=== PATIENT | male | born 1950 | race Caucasian/White ===

== ENCOUNTER 2020-04-17 13:14 | Observation (INO) | payer MEDICARE, BC, OTHER ==
[~2020-04-17] VITALS: Ht 177.8 cm; Wt 74.8 kg
--- NOTE | 2020-04-17 15:17 | Diagnostic Imaging Report ---
EXAMINATION: CHEST SINGLE (PORTABLE) INDICATION: ^CP ^[id number] ^1426 COMPARISON: None FINDINGS: Pacemaker device overlying the left mid chest with leads overlying the right atrium, right ventricle and third lead probably in the coronary sinus. TUBES and LINES: None. LUNGS: Lungs are well inflated. Lungs are clear. There is no evidence of pneumonia or pulmonary edema. PLEURA: No pleural effusion or pneumothorax. HEART AND MEDIASTINUM: The cardiomediastinal silhouette is unremarkable.. BONES AND SOFT TISSUES: No acute osseous lesion. Soft tissues are unremarkable. UPPER ABDOMEN: No free air under the diaphragm. IMPRESSION: No acute thoracic abnormality. Signed by: Dr. Radha Srivastava M.D. on 04/17/2020 3:14 PM
[2020-04-17 15:56] LABS: BASOPHILS % 0.6 % (0.0-1.0); EOSINOPHILS # (AUTO) 0.1 (0.0-0.4); HEMATOCRIT 41.9 % (38.2-49.6); HEMOGLOBIN 13.4 g/dL (14.0-18.0); LYMPHOCYTES % 19.1 % (18.0-39.1); MEAN CORPUSCULAR HEMOGLOBIN 30.4 pg (28-32); MONOCYTES # (AUTO) 0.5 (0.2-0.8); MONOCYTES % 9.7 % (4.4-11.3); NEUTROPHILS # (AUTO) 3.6 (2.1-6.9); NEUTROPHILS % 69.2 % (38.7-80.0); PLATELET COUNT 236 x10e3/uL (140-360); RED BLOOD COUNT 4.41 x10e6/uL (4.3-5.7); RED CELL DISTRIBUTION WIDTH 13.5 % (11.7-14.4)
[2020-04-17 16:09] LABS: INR 2.63; PROTHROMBIN TIME 30.1 seconds (11.9-14.5)
[2020-04-17 16:10] LABS: PARTIAL THROMBOPLASTIN TIME 34.7 seconds (23.8-35.5)
[2020-04-17 16:16] LABS: ALBUMIN 4.5 g/dL (3.5-5.0); ALBUMIN/GLOBULIN RATIO 1.7 (0.8-2.0); ANION GAP 13.1 mmol/L (8-16); CALCIUM 9.3 mg/dL (8.4-10.2); CREATININE, SERUM 1.5 mg/dL (0.72-1.25); POTASSIUM 5.1 mmol/L (3.5-5.1)
[2020-04-17 16:23] LABS: CREATINE KINASE MB 1.3 ng/mL (0-5.0)
--- NOTE | 2020-04-17 17:56 | Emergency Department Note ---
History of Present Illnes History of Present Illness Chief Complaint: Chest Pain History of Present Illness This is a 69 year old male PATIENT IN FROM HOME WITH COMPLAINTS OF CHEST PAIN OFF AND ON X 2 DAYS; PATIENT DENIES COUGH, SHORTNESS OF BREATH, FEVER. RATES PAIN 2/10, APPEARS IN NO DISTRESS, RESP EVEN AND NONLABORED, AMBULATORY WITHOUT ASSISTANCE. Historian: Patient Arrival Mode: Car Plant Puller Required: No Onset (how long ago): day(s) (2) Location: CHEST Quality: PRESSURE Radiation: Reports non-radiation Onset quality: gradual Timing of current episode: intermittent Progression: waxing and waning Chronicity: new Context: Denies recent illness Relieving factors: none Exacerbating factors: none Associated symptoms: Reports denies other symptoms Treatments prior to arrival: none Past Medical/Family History Physician Review I have reviewed the patient's past medical and family history. Any updates have been documented here. Past Medical History Recent Fever: No Clinical Suspicion of Infectio: No New/Unexplained Change in Ment: No Past Medical History: Hypertension Past Surgical History: CABG, Pacer/AICD, Hernia Repair Other Surgery: AORTIC AND MITRAL VALVE REPAIR AND REPLACEMENT Social History Smoking Cessation: Never Smoker Counseling Performed: No Alcohol Use: None Any Illegal Drug Use: No Physically hurt or threatened: No Other Any Pre-Existing Lines (PICC,: No Review of Systems Review of Systems Constitutional: Reports no symptoms EENTM: Reports no symptoms Cardiovascular: Reports as per HPI, Reports chest pain Respiratory: Reports no symptoms Gastrointestinal: Reports no symptoms Genitourinary: Reports no symptoms Musculoskeletal: Reports no symptoms Integumentary: Reports no symptoms Neurological: Reports no symptoms Psychological: Reports no symptoms Endocrine: Reports no symptoms Hematological/Lymphatic: Reports no symptoms Physical Exam Related Data Allergies: Coded Allergies: No Known Allergies (Unverified , 04/17/20) Triage Vital Signs Vital Signs Date Time Temp Pulse Resp B/P (MAP) Pulse Ox O2 Delivery O2 Flow Rate FiO2 04/17/20 13:20 98.8 87 20 144/95 98 Room Air Vital signs reviewed: Yes Physical Exam CONSTITUTIONAL Constitutional: Present well-developed, Present well-nourished HENT HENT: Present normocephalic, Present atraumatic, Present oropharynx clear/moist, Present nose normal HENT L/R: Present left ext ear normal, Present right ext ear normal EYES Eyes: Reports PERRL, Reports conjunctivae normal NECK Neck: Present ROM normal PULMONARY Pulmonary: Present effort normal, Present breath sounds normal CARDIOVASCULAR Cardiovascular: Present regular rhythm, Present heart sounds normal, Present capillary refill normal, Present normal rate, Present 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 (MECHANICAL CLICK) GASTROINTESTINAL Abdominal: Present soft, Present nontender, Present bowel sounds normal GENITOURINARY Genitourinary: Present exam deferred SKIN Skin: Present warm, Present dry MUSCULOSKELETAL Musculoskeletal: Present ROM normal NEUROLOGICAL Neurological: Present alert, Present oriented x 3, Present no gross motor or sensory deficits PSYCHOLOGICAL Psychological: Present mood/affect normal, Present judgement normal Results Laboratory Result Diagram: 04/17/20 1520 04/17/20 1520 Laboratory Laboratory Tests Test 04/17/20 15:20 White Blood Count 5.24 x10e3/uL (4.8-10.8) Red Blood Count 4.41 x10e6/uL (4.3-5.7) Hemoglobin 13.4 g/dL (14.0-18.0) Hematocrit 41.9 % (38.2-49.6) Mean Corpuscular Volume 95.0 fL (81-99) Mean Corpuscular Hemoglobin 30.4 pg (28-32) Mean Corpuscular Hemoglobin Concent 32.0 g/dL (31-35) Red Cell Distribution Width 13.5 % (11.7-14.4) Platelet Count 236 x10e3/uL (140-360) Neutrophils (%) (Auto) 69.2 % (38.7-80.0) Lymphocytes (%) (Auto) 19.1 % (18.0-39.1) Monocytes (%) (Auto) 9.7 % (4.4-11.3) Eosinophils (%) (Auto) 1.0 % (0.0-6.0) Basophils (%) (Auto) 0.6 % (0.0-1.0) Neutrophils # (Auto) 3.6 (2.1-6.9) Lymphocytes # (Auto) 1.0 (1.0-3.2) Monocytes # (Auto) 0.5 (0.2-0.8) Eosinophils # (Auto) 0.1 (0.0-0.4) Basophils # (Auto) 0.0 (0.0-0.1) Absolute Immature Granulocyte (auto 0.02 x10e3/uL (0-0.1) Prothrombin Time 30.1 seconds (11.9-14.5) Prothromb Time International Ratio 2.63 Activated Partial Thromboplast Time 34.7 seconds (23.8-35.5) Sodium Level 143 mmol/L (136-145) Potassium Level 5.1 mmol/L (3.5-5.1) Chloride Level 106 mmol/L (98-107) Carbon Dioxide Level 29 mmol/L (22-29) Anion Gap 13.1 mmol/L (8-16) Blood Urea Nitrogen 26 mg/dL (7-26) Creatinine 1.50 mg/dL (0.72-1.25) Estimat Glomerular Filtration Rate 47 ML/MIN (60-) BUN/Creatinine Ratio 17 (6-25) Glucose Level 105 mg/dL (74-118) Calcium Level 9.3 mg/dL (8.4-10.2) Total Bilirubin 0.7 mg/dL (0.2-1.2) Aspartate Amino Transf (AST/SGOT) 31 IU/L (5-34) Alanine Aminotransferase (ALT/SGPT) 34 IU/L (0-55) Alkaline Phosphatase 61 IU/L (40-150) Creatine Kinase 100 IU/L (30-200) Creatine Kinase MB 1.30 ng/mL (0-5.0) Troponin I 0.003 ng/mL (0-0.300) B-Type Natriuretic Peptide 142.9 pg/mL (0-100) Total Protein 7.1 g/dL (6.5-8.1) Albumin 4.5 g/dL (3.5-5.0) Globulin 2.6 g/dL (2.3-3.5) Albumin/Globulin Ratio 1.7 (0.8-2.0) Lab results reviewed: Yes Imaging Imaging results reviewed: Yes Impressions Procedure: [id number] DX/CHEST SINGLE (PORTABLE) Exam Date: 04/17/20 Exam Time: 1424 REPORT STATUS: Signed EXAMINATION: CHEST SINGLE (PORTABLE) INDICATION: ^CP ^[id number] ^1425 COMPARISON: None FINDINGS: Pacemaker device overlying the left mid chest with leads overlying the right atrium, right ventricle and third lead probably in the coronary sinus. TUBES and LINES: None. LUNGS: Lungs are well inflated. Lungs are clear. There is no evidence of pneumonia or pulmonary edema. PLEURA: No pleural effusion or pneumothorax. HEART AND MEDIASTINUM: The cardiomediastinal silhouette is unremarkable.. BONES AND SOFT TISSUES: No acute osseous lesion. Soft tissues are unremarkable. UPPER ABDOMEN: No free air under the diaphragm. IMPRESSION: No acute thoracic abnormality. Signed by: Dr. Radha Srivastava M.D. on 04/17/2020 3:14 PM Procedures 12 Lead ECG Interpretation ECG Interpretation : ECG: ECG 1 Plant Puller: Interpreted by ED physician Date: Apr 17, 2020 Time: 13:25 Rhythm: paced (CONTINUOUS ELECTRONIC PACEMAKER) Rate: tachycardia (74) QRS axis: right Clinical Impression: abnormal ECG Assessment & Plan Medical Decision Making MDM CBC, CHEM, ECG, CARDIACS, BNP, CXR, COVID SWAB - R/O STEMI/NSTEMI/ACS, ELECTROLYTE ABNL, PNEUMONIA, COVID Reassessment Reassessment PT REQUESTS TRANSFER TO [facility] WHERE HIS OIL WELL LOGGING ENGINEER IS, DR POLANCO. REPORT TO DR HARP - AWAIT CALL BACK FOR POSSIBLE TRANSFER Assessment & Plan Final Impression: (1) Chest pain Depart Disposition: TRANS TO OTHER [facility] Last Vital Signs Date Time Temp Pulse Resp B/P (MAP) Pulse Ox O2 Delivery O2 Flow Rate FiO2 04/17/20 13:20 98.8 87 20 144/95 98 Room Air AMI MARI MD Apr 17, 2020 17:56
[2020-04-17] MEDS ORDERED: ONDANSETRON HCL INJ 2MG/ML 2ML 2 MG/ML VIAL IV PRN (20:15)
[2020-04-17] MEDS ORDERED: MELATONIN 5 MG TABLET PO PRN (22:00)
[2020-04-17] MEDS ORDERED: ACETAMINOPHEN 325 MG TAB PO PRN (22:00)
[2020-04-17] MEDS ORDERED: HYDROCODONE/APAP 5MG-325MG TAB PO PRN (22:00)
[2020-04-17] MEDS ORDERED: HYDRALAZINE HCL 20 MG/ML VIAL IV PRN (22:00)
[2020-04-17] MEDS ORDERED: DOCUSATE SODIUM 100 MG CAP PO PRN (22:00)
[2020-04-17] MEDS ORDERED: ASPIRIN 81 MG CHEW TAB PO ONE (22:15)
--- NOTE | 2020-04-18 00:54 | NUR ---
Received report from ER nurse.
--- NOTE | 2020-04-18 02:09 | NUR ---
Patient concerned about his coumadin. Called and s/w Dr Love and recieved order for one time dose of meds.
[2020-04-18] MEDS ORDERED: WARFARIN SOD 5 MG TAB PO ONE (02:15)
[2020-04-18 02:27] LABS: CREATINE KINASE MB 1.5 ng/mL (0-5.0)
[2020-04-18 02:43] VITALS: BP 169/96
[2020-04-18] MEDS ORDERED: RAMIPRIL5 MG PO (03:00)
[2020-04-18] MEDS ORDERED: COUMADIN5 MG PO (03:00)
[2020-04-18] MEDS ORDERED: AMIODARONE HCL200 MG PO (03:02)
[2020-04-18] MEDS ORDERED: vitamin D3 PO (03:22)
[2020-04-18] MEDS ORDERED: calcium PO (03:26)
[2020-04-18] MEDS ORDERED: MULTIVITAMINS1 EAC7 PO (03:28)
[2020-04-18 04:00] VITALS: BP 148/86
--- NOTE | 2020-04-18 05:39 | NUR ---
Patient resting quitly at this rime,. Continur to monitor.
--- NOTE | 2020-04-18 07:00 | NUR ---
received bedside report. pt is alert sitting up in bed, no s/s of distress. call light within reach and instructed pt to call RN for help
[2020-04-18 07:23] LABS: BASOPHILS % 0.5 % (0.0-1.0); EOSINOPHILS % 0.5 % (0.0-6.0); HEMATOCRIT 41.9 % (38.2-49.6); HEMOGLOBIN 13.3 g/dL (14.0-18.0); LYMPHOCYTES % 13.9 % (18.0-39.1); MEAN CORPUSCULAR HEMOGLOBIN 30.4 pg (28-32); MEAN CORPUSCULAR HGB CONC 31.7 g/dL (31-35); MEAN CORPUSCULAR VOLUME 95.7 fL (81-99); MONOCYTES # (AUTO) 0.7 (0.2-0.8); MONOCYTES % 9.5 % (4.4-11.3); NEUTROPHILS # (AUTO) 5.5 (2.1-6.9); NEUTROPHILS % 75.2 % (38.7-80.0); PLATELET COUNT 211 x10e3/uL (140-360); RED BLOOD COUNT 4.38 x10e6/uL (4.3-5.7); RED CELL DISTRIBUTION WIDTH 13.2 % (11.7-14.4)
[2020-04-18 07:44] LABS: ALBUMIN 4.2 g/dL (3.5-5.0); ALBUMIN/GLOBULIN RATIO 1.6 (0.8-2.0); ANION GAP 12.1 mmol/L (8-16); CALCIUM 9.2 mg/dL (8.4-10.2); CREATININE, SERUM 1.2 mg/dL (0.72-1.25); POTASSIUM 4.1 mmol/L (3.5-5.1)
[2020-04-18 07:53] VITALS: BP 141/89
[2020-04-18 07:56] VITALS: BP 141/89
[2020-04-18 08:23] LABS: CREATINE KINASE MB 2.4 ng/mL (0-5.0)
[2020-04-18] MEDS ORDERED: ASPIRIN 325 MG TAB PO SCH (09:00)
--- NOTE | 2020-04-18 18:08 | Consultation ---
DATE OF CONSULTATION: Cardiac consultation. REASON FOR CONSULTATION: Chest pain, dizzy spells, and patient with complex cardiac history. HISTORY OF PRESENT ILLNESS: This is a 69-year-old gentleman who is known with longstanding history of heart disease, in fact his heart disease is valvular in nature. He had aortic valve repair surgery in 1966, which helped him till 1993 where he had aortic valve replacement by Dr. Klein. Subsequently, he did well until approximately 2009 where he had problem with syncope and near syncope. The patient had [employer] pacemaker placement in 2009. In 2011, he need to have mitral valve replacement by Dr. Mcmanus severe mitral regurgitation. In 2012, he need to have some form of recent ablation, questionable atrial fibrillation. In 2018, he had his generator changed by Dr. Kirkland. The patient is seen and evaluated in October of this year by Dr. Castañeda had cardiac stress test, which was reported negative as per patient. The patient on , he working in his yard. He felt dizzy. He is almost going to pass out. He came inside to drink a lot of fluid. He checked his blood pressure. His systolic was 150, i.e. no low blood pressure. Over the ensuing few days, his blood pressure is between 100 to 140, but he is having very vague discomfort in his abdomen and his lower chest . There is no nausea, no vomiting. There is no pleuritic nor pericardiac component of chest pain. Definitely, no anginal chest pain. No relation to activity. There is no nausea, no vomiting. He was alarmed by that. He called his PCP and they advised him to come to the emergency room to have EKG. He was seen in ER, admitted for further management. Serial cardiac enzymes were ordered, which were negative by the time I have evaluated him. Furthermore, his BNP is only 142. His chest x-ray showed no acute changes with pacemaker in place. His EKG showed pacing activities. Today, the patient feeling well. He denied having any chest pain. He complained above health problem. There is no recent dental workup. There is no fever, no chills. There is no recent travel. There is no swelling of the lower extremities. There is definitely no hematemesis. No melena. No nausea. No vomiting. REVIEW OF SYSTEMS: GENERAL: No fever, no chills. No weight loss. No weight gain. HEENT: No vision problem. No hearing problem. PULMONARY and CARDIAC and GI: As per above. : No hematuria. No dysuria. MUSCULOSKELETAL: Nonspecific aches. HEMATOLOGY: No easy bruising, bleeding. PSYCHIATRIC: The patient there are no complaints. 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 He is nonsmoker, nonalcohol/rarely drink. PAST SURGICAL HISTORY: 1. Aortic valve repair in 1965 and aortic valve [place] [address] Klein. 2. Pacemaker in 2009 with generator change in 2018, [employer]. 3. Mitral valve replacement in 2011. 4. In 2014, the patient had possible atrial fibrillation ablation. 5. Major pneumonia in 2013. 6. Bilateral right and left inguinal hernia surgery. 7. Knee surgery in 2013. FAMILY HISTORY: Noncontributory. PHYSICAL EXAMINATION: VITAL SIGNS: Height of 5 feet 10 inches, weight of 165 pounds, blood pressure 140/90, heart rate of 70, respiratory rate of 18, afebrile. HEENT: Pupils are equal and reactive. NECK: No elevation of jugular venous pulsation. CHEST: Clear to auscultation and percussion. Pacemaker is noted in place. HEART: Mitral and aortic valve clicks are audible. Ejection systolic murmur is present. ABDOMEN: Soft. There is no organomegaly. No abdominal bruit. No splenomegaly. No hepatomegaly. EXTREMITIES: No cyanosis, no clubbing, no edema. Warm extremities. No signs of deep venous thrombosis. NEUROLOGIC: Awake, alert, and oriented. No motor or sensory deficit. HOME MEDICATIONS: 1. Amiodarone 200 mg a day. 2. Ramipril 5 mg a day. 3. Warfarin 5 mg a day. 4. The patient not taking aspirin, as per patient, his machinist instructor told him not to take it. ALLERGIES: NONE. LABORATORY DATA: Sodium 142, potassium 4.1, BUN 22, creatinine of 1.2. White blood cell count of 7.3, hemoglobin 13.3, hematocrit 42%, and platelet count of 211,000. INR is 2.6. BNP of 142. Serial cardiac enzymes are normal. Triglycerides of 114, cholesterol of 214, HDL of 54, LDL of 137, TSH of 2.7. EKG showing pacing rhythm. IMPRESSION AND PLAN: 1. Atypical chest pain. 2. An episode of dizziness and near syncope, most likely is volume depletion. However, patient's blood pressure was good at the time of the episodes. 3. The patient already had pacemaker, which will make it very unlikely to be cardiac arrhythmias because this will be detected by continuous monitoring he got at home. 4. Coronary artery disease is unlikely. No typical symptoms or no symptoms. Furthermore, patient had negative cardiac stress test in October. 5. Very complex aortic and mitral valve disease status post valve replacement of both aortic and mitral valve. 6. 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 My recommendation if the cardiac enzymes are normal and if the echocardiogram showed no major abnormality, the patient can be dismissed home and follow up with Dr. Castañeda and Dr. Kirkland. The patient in fact wants to go home. Differential diagnosis and everything is discussed and explained, importance of anticoagulation and checking about aspirin as well as SBE prophylaxis are discussed. MD AFSHIN Sifuentes/SHILOL /[id number]
--- NOTE | 2020-04-18 20:28 | History and Physical ---
CHIEF COMPLAINT: Chest pain. HISTORY OF PRESENT ILLNESS: A 69-year-old male with history of mechanical aortic and mitral valve many years ago, on anticoagulation, comes into the ED with complaints of chest pain. The patient reportedly started having chest pain on in which he called his PCP, was told that to take some Maalox thinking that was acid reflux, but initially with some relief. He reports that the chest pain continued to resume yesterday substernally and he came to the ED for further evaluation and management. 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 The patient was admitted on observation and Cardiology was consulted. The patient was seen and evaluated at bedside on the medical floor. He is currently doing well. He is chest pain-free during my evaluation. REVIEW OF SYSTEMS: Pertinent positive chest pain, acid reflux. The rest of 14-point review of systems have been reviewed with the patient and are negative. ALLERGIES: NO KNOWN DRUG ALLERGIES. HOME MEDICATIONS: 1. Amiodarone. 2. Multivitamin. 3. Ramipril. 4. Warfarin. 5. Calcium. 6. Vitamin D3. PAST MEDICAL HISTORY: 1. He has aortic and mechanical valve on anticoagulation. 2. Hypertension. PAST SURGICAL HISTORY: Pacemaker. He had aortic and mitral valve replacement mechanical. PAST FAMILY HISTORY: Hypertension and diabetes. SOCIAL HISTORY: No drugs, no alcohol. Does not smoke. Good social support. PHYSICAL EXAMINATION: VITAL SIGNS: Temperature is 97.7, pulse 69, respiratory rate 20, blood pressure 141/89, pulse ox 98% on room air. GENERAL: Not in acute distress, alert and oriented x3, cooperative on examination. HEENT: Head is normocephalic, atraumatic. Eyes; pupils are equal, round, and reactive to light bilaterally. Extraocular movements intact bilaterally. NECK: Supple. Good range of motion throughout. Throat, no evidence of erythema or exudates in the posterior pharynx. Has poor dentition. PULMONARY: Clear to auscultation bilaterally. No wheezing, rales, or rhonchi. No crackles appreciated. CARDIOVASCULAR: Positive S1, S2. No murmurs, rubs, or gallops. ABDOMEN: Soft, nondistended, nontender to palpation. Bowel sounds present. MUSCULOSKELETAL: Strength is 5/5 throughout. No evidence of any muscle deficits on examination. No weakness appreciated. SKIN: Intact. Warm to touch. Good cap refill. PSYCHIATRIC: Normal affect and mood. EXTREMITIES: No edema. Good range of motion throughout. LABORATORY FINDINGS: Show white count 7.3, hemoglobin 13, hematocrit 41, and platelets of 211. Coagulation, PT 30, INR is 2.63, PTT 34. Chemistry, sodium is 142, potassium 4.1, chloride 106, bicarb 28, anion gap of 12, BUN 22, creatinine 1.2, glucose 107. A1c is 5.2, calcium is 9.2. LFTs within normal range. Troponins were negative. LDL was 137, HDL 54, TSH 2.6. Albumin was 4.2. BNP 142. TSH was 2.686. Coronavirus is pending. MICROBIOLOGY: None. IMAGING STUDIES: Chest x-ray was negative. IMPRESSION: 1. Chest pain rule out acute coronary syndrome, likely atypical in nature. 2. Mechanical aortic and mitral valve on anticoagulation. 3. Acid reflux. PLAN: At this time, cardiac enzymes were found to be negative. EKG shows no acute findings. Cardiology was consulted. Initiate cardioprotective medications. Restart anticoagulation. Heart healthy diet. He is on warfarin for DVT prophylaxis. Cardiology already cleared the patient for discharge after evaluating him. The patient is doing well. He is chest pain free. It is felt to be likely acid reflux in nature, which once we started. I gave him prescription for Protonix in which he is now currently doing better. MD MARGO Ray/SHILOL /[id number]
[2020-04-18] MEDS ORDERED: ATORVASTATIN 20 MG TAB PO SCH (21:00)
--- NOTE | 2020-04-19 03:14 | Discharge Summary ---
FINAL DISCHARGE DIAGNOSES: 1. Atypical chest pain. 2. Acid reflux. 3. Mechanical aortic and mitral valve. OCCASIONAL CAREGIVER: Cardiology. PHYSICAL EXAMINATION: VITAL SIGNS: Temperature is 97.7, pulse 69, respiratory rate 20, blood pressure is 141/89, pulse ox 98% on room air. LABORATORY FINDINGS: White count is 7.3, hemoglobin 13, hematocrit 41.9, platelets of 211. Coagulation; PT 30, INR 2.63, PTT 34.7. Chemistry; sodium 142, potassium 4.1, chloride 106, bicarb 20, anion gap of 12, BUN is 22, creatinine is 1.2, glucose is 107. Hemoglobin A1c 5.2, calcium 9.2. LFTs within normal range. Troponins were negative. Albumin was 4.2. TSH is 2.6. LDL 137. Serology; coronavirus is pending. IMAGING STUDIES: Chest x-ray found to be negative. HOSPITAL COURSE: A 69-year-old male, comes into the ED with complaints of chest pain. The patient was admitted under observation. Cardiology was consulted. It was felt that the patient's chest pain is atypical in nature, likely secondary to acid reflux. The patient's cardiac enzymes were negative, EKG showed no acute findings. I spoke with Cardiology. The patient was cleared for discharge by Cardiology with no further workup needed. 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 The patient was given a prescription for acid reflux medication with Protonix. The patient also found to have elevated LDL, was discharged on oral Lipitor as well as aspirin. The patient was cleared for discharge by all consultants. The patient was chest pain-free prior to being discharged home. He is back to normal baseline with no other complaints. On the day of discharge, vital signs were stable labs reviewed and stable. The patient seen, evaluated and examined thoroughly on the day of discharge, no other complaints. The patient verbalized understanding and agreed to plan of care to follow up accordingly as an outpatient with primary care physician in [address] officer in 2 weeks' time. MEDICATIONS: See med reconciliation form. DISPOSITION: Home. CONDITION: Stable. DIET: Heart healthy. In the event of worsening symptoms, the patient advised to come back to the ED for further evaluation. Discharge summary took greater than 35 minutes. Once again, the patient has been cleared for discharge by Cardiology. The patient is back to normal baseline. MD MARGO Ray/SHILOL /[id number]
== END 2020-04-18 13:24 | disposition home or self-care (01) ==
LOC: ER 15:05 → ERHOLD 21:36 → MED/SURG 04-18 01:02
PROVIDERS: ADMIT Internal Medicine; ATTEND Internal Medicine
DX: R07.89 Other chest pain (principal); Z79.01 Long term (current) use of anticoagulants; Z95.2 Presence of prosthetic heart valve; Z95.0 Presence of cardiac pacemaker; Z87.01 Personal history of pneumonia (recurrent); I10 Essential (primary) hypertension; K21.9 Gastro-esophageal reflux disease without esophagitis; Z11.59 Encounter for screening for other viral diseases
CPT/HCPCS: 36415 ×2; 71045; 80053 ×2; 80061; 82550 ×2; 82553 ×2; 83036; 83880; 84443; 84484 ×2; 85025 ×2; 85610; 85730; 87635; 93005; 93306; 99284; G0378 ×2

== ENCOUNTER 2021-04-08 01:31 | Emergency (ER) | payer MEDICARE, BC ==
[~2021-04-08] VITALS: Ht 177.8 cm; Wt 74.8 kg
[~2021-04-08 01:31] MED LIST: AMIODARONE HCL200 MG PO; COUMADIN5 MG PO; MULTIVITAMINS1 EAC7 PO; RAMIPRIL5 MG PO; calcium PO; vitamin D3 PO
== END 2021-04-08 02:22 | disposition home or self-care (01) ==
LOC: FSED 01:55
DX: S00.412A Abrasion of left ear, initial encounter (principal); W22.8XXA Striking against or struck by other objects, initial encounter; Y93.E8 Activity, other personal hygiene; Y92.008 Other place in unspecified non-institutional (private) residence as the place of occurrence of the external cause; I10 Essential (primary) hypertension; Z95.1 Presence of aortocoronary bypass graft; Z95.810 Presence of automatic (implantable) cardiac defibrillator
CPT/HCPCS: 99282